=== PATIENT | male | born 1935 | race Caucasian/White ===

== ENCOUNTER 2019-03-13 04:54 | Emergency (ER) | payer MEDICARE ==
[~2019-03-13] VITALS: Ht 167.6 cm; Wt 63.5 kg
[2019-03-13 05:04] VITALS: Ht 167.6 cm; Wt 63.5 kg
[2019-03-13 05:09] VITALS: BP 98/56
== END 2019-03-13 11:53 | disposition expired ==
LOC: ED 04:54
DX: I46.9 Cardiac arrest, cause unspecified (principal); Z88.0 Allergy status to penicillin
CPT/HCPCS: 82962; 83880; 84439; G0480; J0171; J0610; J3490